=== PATIENT | male | born 1995 | race Caucasian/White ===

== ENCOUNTER 2017-06-23 10:30 | Emergency (ER) | payer OTHER ==
[~2017-06-23] VITALS: Ht 180.3 cm; Wt 84.1 kg
[2017-06-23 10:31] VITALS: BP 149/82
[2017-06-23] MEDS ORDERED: NAPR500T3 PO (10:41)
[2017-06-23] MEDS ORDERED: ADDE1TAB14 PO (10:41)
[2017-06-23] MEDS ORDERED: DOXY100C37 PO (12:29)
[2017-06-23] MEDS ORDERED: BENA25TA10 PO (12:29)
== END 2017-06-23 12:42 | disposition home or self-care (01) ==
LOC: M ED 10:30
DX: L30.9 Dermatitis, unspecified (principal); F90.9 Attention-deficit hyperactivity disorder, unspecified type; F17.210 Nicotine dependence, cigarettes, uncomplicated

== ENCOUNTER 2017-12-17 18:34 | Emergency (ER) | payer OTHER ==
[2017-12-17] MEDS: KETOROLAC 60 MG/2 ML VIAL (J1885) IM (20:22)
== END 2017-12-17 21:20 | disposition home or self-care (01) ==
LOC: M ED 18:34
DX: G43.909 Migraine, unspecified, not intractable, without status migrainosus (principal); F17.200 Nicotine dependence, unspecified, uncomplicated
CPT/HCPCS: J1885

== ENCOUNTER → 2018-03-26 | Outpatient (CLI) | payer OTHER | LOC: M RAD 16:21 | DX: N50.819 Testicular pain, unspecified (principal); R10.9 Unspecified abdominal pain | CPT/HCPCS: 76870 ==

== ENCOUNTER 2018-03-30 02:37 | Emergency (ER) | payer OTHER | END 2018-03-30 05:26 | disposition left against medical advice (07) | LOC: M ED 02:37 | DX: Z53.21 Procedure and treatment not carried out due to patient leaving prior to being seen by health care provider (principal) ==

== ENCOUNTER → 2018-04-29 | Outpatient (CLI) | payer OTHER ==
[2018-04-29 13:38] LABS: APPEARANCE, URINE CLEAR (CLEAR); BACTERIA, URINE AUTO NEGATIVE (NEGATIVE); BILIRUBIN, URINE AUTO NEGATIVE (NEGATIVE); BLOOD, URINE BLOOD NEGATIVE (NEGATIVE); COLOR, URINE YELLOW (YELLOW); GLUCOSE, URINE (UA) AUTO NEGATIVE (NEGATIVE); KETONE, URINE AUTO NEGATIVE (NEGATIVE); LEUKOCYTE ESTERASE, URINE AUTO NEGATIVE (NEGATIVE); NITRITE, URINE AUTO NEGATIVE (NEGATIVE); PROTEIN, URINE AUTO NEGATIVE (NEGATIVE); RBC, URINE AUTO 1 /HPF (0-3); SPECIFIC GRAVITY URINE AUTO 1.013 (1.002-1.035); SQUAMOUS EPITHELIAL CELL UR AU 0 /HPF (0-6); UROBILINOGEN, URINE AUTO 0.2 mg/dL (0.0-2.0); WBC, URINE AUTO 0 /HPF (0-3)
[2018-04-29 13:43] LABS: HEMATOCRIT 47.3 % (42.0-52.0); HEMOGLOBIN 16.1 g/dl (13.5-17.5); MEAN CORPUSCULAR HEMOGLOBIN 28.2 pg (27.0-33.0); MEAN CORPUSCULAR VOLUME 82.8 fl (80.0-96.0); PLATELET COUNT, AUTOMATED 277 10^3/uL (150-450); RED BLOOD COUNT 5.71 10^6/uL (4.30-6.10); RED CELL DISTRIBUTION WIDTH 12.3 % (11.5-14.5); WHITE BLOOD COUNT 7.8 10^3/uL (4.0-10.0)
[2018-04-29 13:52] LABS: INR 1.01; PROTHROMBIN TIME 13.4 SECONDS (12.1-14.4)
[2018-04-29 13:53] LABS: PARTIAL THROMBOPLASTIN TIME 29.5 SECONDS (25.4-37.6)
[2018-04-29 14:06] LABS: ANION GAP 6 MEQ/L (8-16); BLOOD UREA NITROGEN 15 MG/DL (7-18); CALCIUM LEVEL 9.6 MG/DL (8.5-10.1); CARBON DIOXIDE LEVEL 30 MEQ/L (21-32); CHLORIDE LEVEL 104 MEQ/L (98-107); CREATININE FOR GFR 1.05 MG/DL (0.70-1.30); GLOMERULAR FILTRATION RATE > 60.0 (>60); GLUCOSE, FASTING 80 MG/DL (70-100); POTASSIUM SERUM 4.4 MEQ/L (3.5-5.1); SODIUM LEVEL 140 MEQ/L (136-145)
== END ==
LOC: M LAB 12:49
DX: Z01.812 Encounter for preprocedural laboratory examination (principal); N50.89 Other specified disorders of the male genital organs
CPT/HCPCS: 36415

== ENCOUNTER 2018-05-05 13:04 | Day surgery (SDC) | payer OTHER ==
[~2018-05-05 13:04] MED LIST: LIDOCAINE 1% MDV 20ML VIAL SQ
[2018-05-05] MEDS ORDERED: ceFAZolin 2 GM/D5W 50 ML IV BAG (J0690 PER 500MG) As Ordered (13:40)
[2018-05-05] MEDS ORDERED: LR 1,000 ML IV (14:00)
[2018-05-05] MEDS ORDERED: dexameTHASONE 4 MG/ML 1ML VIAL (J1100) As Ordered (14:24)
[2018-05-05] MEDS ORDERED: MIDAZOLAM INJ 2 MG/2 ML VIAL (J2250) As Ordered (14:24)
[2018-05-05] MEDS ORDERED: LIDOCAINE 2% INJ 100 MG/5 ML SDV (FOR ANES.) As Ordered (14:24)
[2018-05-05] MEDS ORDERED: fentaNYL 100 MCG/2 ML INJECTION (J3010) As Ordered ×2 (14:24→15:36)
[2018-05-05] MEDS ORDERED: PROPOFOL 200 MG/20 ML VIAL As Ordered (14:24)
[2018-05-05] MEDS ORDERED: ONDANSETRON 4MG/2ML VIAL (J2405) As Ordered (14:24)
[2018-05-05] MEDS: LIDOCAINE 2% MDV 20 ML VIAL As Ordered (14:45)
[2018-05-05] MEDS: BUPIVACAINE HCL 0.25% 10 ML VIAL As Ordered (14:45)
[2018-05-05] MEDS ORDERED: BACITRACIN OINT 30GM As Ordered (14:52)
[2018-05-05] MEDS ORDERED: PERCOCET 5MG/325MG TAB As Ordered (15:33)
[2018-05-05] MEDS: PERCOCET 5MG/325MG TAB PO ×2 (15:34→16:32)
[2018-05-05] MEDS: fentaNYL 100 MCG/2 ML INJECTION (J3010) IV ×4 (15:38→15:56)
[2018-05-05] MEDS ORDERED: ONDANSETRON 4MG/2ML VIAL (J2405) IV (15:45)
[2018-05-05] MEDS ORDERED: KETOROLAC 30 MG/ML VIAL (J1885) As Ordered (15:48)
[2018-05-05] MEDS: KETOROLAC 30 MG/ML VIAL (J1885) IV (15:58)
== END 2018-05-05 17:05 | disposition home or self-care (01) ==
LOC: M SDC 13:04
DX: N50.3 Cyst of epididymis (principal); Q55.29 Other congenital malformations of testis and scrotum; Z72.0 Tobacco use
CPT/HCPCS: 54830

== ENCOUNTER 2018-06-28 14:52 | Emergency (ER) | payer OTHER | END 2018-06-28 16:34 | disposition left against medical advice (07) | LOC: M ED 14:52 | DX: Z53.29 Procedure and treatment not carried out because of patient's decision for other reasons (principal) ==

== ENCOUNTER 2018-09-20 09:15 | Emergency (ER) | payer OTHER ==
[~2018-09-20] VITALS: Ht 180.3 cm; Wt 90.9 kg
[~2018-09-20 09:15] MED LIST changes: +ADDE1TAB14 PO; +BACT800T5 PO; +BENA25TA10 PO; +DOXY100C37 PO; +KETO10TAB PO; -LIDOCAINE 1% MDV 20ML VIAL SQ; +METH-914 PO; +NAPR-885 PO; +TYLE650T35 PO
[2018-09-20] MEDS ORDERED: VIVI380I (09:22)
[2018-09-20] MEDS ORDERED: BUSP10TA (09:22)
[2018-09-20] MEDS ORDERED: PRAZ2CAP (09:22)
[2018-09-20] MEDS ORDERED: TRAZ-163 (09:22)
[2018-09-20] MEDS ORDERED: SERT-155 (09:22)
--- NOTE | 2018-09-20 10:25 | REP ---
CT Head without contrast HISTORY: Head injury COMPARISON: 12/17/2017 There is no intraparenchymal hemorrhage, acute infarct, mass or midline shift. The ventricular system is normal in appearance. There is no extra cerebral collection. There is no fracture. The visualized sinuses are clear. IMPRESSION: There is no intracranial lesion. Electronically Signed by Moe Brannon MD 09/20/2018 10:16 A
[2018-09-20] MEDS ORDERED: ONDANSETRON 4MG/2ML VIAL (J2405) IV ONE (10:30)
[2018-09-20 10:36] LABS: BASO # 0.1 10^3/uL (0.0-0.2); BASO % 0.9 % (0.0-1.0); EOS # 0.2 10^3/uL (0.0-0.50); EOS % 2.3 % (0.0-3.0); HEMOGLOBIN 15.8 g/dl (13.5-17.5); LYMPH # 2.3 10^3/uL (1.5-6.5); MEAN CORPUSCULAR HEMOGLOBIN 28.5 pg (27.0-33.0); MEAN CORPUSCULAR HGB CONC 34.3 g/dl (32.0-36.5); MEAN CORPUSCULAR VOLUME 82.9 fl (80.0-96.0); MONO # 0.5 10^3/uL (0.0-0.8); MONO % 6.9 % (0.0-5.0); NEUTROPHILS # 4.6 10^3/uL (1.8-7.7); NEUTROPHILS % 59.3 % (36.0-66.0); PLATELET COUNT, AUTOMATED 258 10^3/uL (150-450); RED BLOOD COUNT 5.55 10^6/uL (4.30-6.10); WHITE BLOOD COUNT 7.8 10^3/uL (4.0-10.0)
[2018-09-20 10:38] LABS: BLOOD UREA NITROGEN 21 MG/DL (7-18); CALCIUM LEVEL 8.9 MG/DL (8.5-10.1); CARBON DIOXIDE LEVEL 28 MEQ/L (21-32); CHLORIDE LEVEL 104 MEQ/L (98-107); CREATININE FOR GFR 1.04 MG/DL (0.70-1.30); GLOMERULAR FILTRATION RATE > 60.0 (>60); GLUCOSE, FASTING 123 MG/DL (70-100); POTASSIUM SERUM 3.8 MEQ/L (3.5-5.1); SODIUM LEVEL 137 MEQ/L (136-145)
[2018-09-20] MEDS ORDERED: NS 1,000 ML IV ONE (11:00)
[2018-09-20] MEDS ORDERED: ACETAMINOPHEN 325 MG TAB PO ONE (12:00)
[2018-09-20] MEDS ORDERED: METOCLOPRAMIDE INJ 10MG/2ML VIAL (J2765) IV ONE (13:30)
[2018-09-20] MEDS ORDERED: MORPHINE 2 MG/ML 1ML SYRINGE (J2270) IV ONE (13:30)
--- NOTE | 2018-09-20 13:49 | ECGEPIP ---
Stationary ECG Study [facility] - ED Test Date: 2018-09-20 Pat Name: BARBARA HUMMEL Department: Room: - Gender: M Sap Mobility Architect: susan : 1995 Requested By: Juancarlos Cameron Order Number: [id number] Reading MD: Elaine Washburn Measurements Intervals [place] Rate: 57 P: 48 NC: 165 QRS: 52 QRSD: 113 T: 28 QT: 380 QTc: 373 Interpretive Statements SINUS BRADYCARDIA MODERATE INTRAVENTRICULAR CONDUCTION DELAY EARLY REPOLARIZATION, CLINICAL CORRELATION DECREASED RATE 06/28/18 Electronically Signed On 09-20-2018 13:48:51 EST by Elaine Washburn
[2018-09-20] MEDS ORDERED: D5W/0.45% SODIUM CHLORIDE 1,000 ML IV ONE (15:00)
[2018-09-20] MEDS ORDERED: REGL5TAB2 PO (16:14)
--- NOTE | 2018-09-20 16:22 | REP ---
MRA BRAIN WITHOUT CONTRAST: HISTORY: Headache. 3D [id number] MR angiography was performed at the level of the [place]. There is no aneurysm, arteriovenous malformation or atherosclerotic lesion. Major intracranial vessels are patent. The right vertebral artery is dominant. The left vertebral artery terminates in the left posterior inferior cerebellar artery. Impression: Normal MRA brain. Electronically Signed by Moe Brannon MD 09/20/2018 04:25 P
--- NOTE | 2018-09-20 16:23 | REP ---
MR BRAIN WITHOUT CONTRAST: HISTORY: Headache. COMPARISON: CT 09/20/2018. There are no areas of abnormal signal intensity in the brain. There is no intraparenchymal hemorrhage, infarct, mass, or midline shift. The ventricular system is normal in appearance. There is no extracerebral collection. The visualized sinuses are clear. IMPRESSION:There is no intracranial lesion. Electronically Signed by Moe Brannon MD 09/20/2018 04:25 P
[2018-09-20 16:40] VITALS: BP 144/63
== END 2018-09-20 16:42 | disposition home or self-care (01) ==
LOC: M ED 09:15
DX: R51 Headache (principal); R42 Dizziness and giddiness; F17.200 Nicotine dependence, unspecified, uncomplicated
CPT/HCPCS: 36415; 70450; 70544; 70551; 80048; 85025; 93005; 96361; 96374; 96375; 99284; J2270; J2405; J2765

== ENCOUNTER → 2018-10-01 | Outpatient (REF) | payer OTHER ==
[~2018-10-01] MED LIST changes: +BUSP10TA; +PRAZ2CAP; +REGL5TAB2 PO; +SERT-155; +TRAZ-163; +VIVI380I
[2018-10-01 14:17] LABS: APPEARANCE, URINE CLEAR (CLEAR); BACTERIA, URINE AUTO NEGATIVE (NEGATIVE); BILIRUBIN, URINE AUTO NEGATIVE (NEGATIVE); BLOOD, URINE BLOOD NEGATIVE (NEGATIVE); COLOR, URINE YELLOW (YELLOW); GLUCOSE, URINE (UA) AUTO NEGATIVE (NEGATIVE); KETONE, URINE AUTO NEGATIVE (NEGATIVE); LEUKOCYTE ESTERASE, URINE AUTO NEGATIVE (NEGATIVE); NITRITE, URINE AUTO NEGATIVE (NEGATIVE); PROTEIN, URINE AUTO NEGATIVE (NEGATIVE); RBC, URINE AUTO 0 /HPF (0-3); SPECIFIC GRAVITY URINE AUTO 1.021 (1.002-1.035); SQUAMOUS EPITHELIAL CELL UR AU 0 /HPF (0-6); UROBILINOGEN, URINE AUTO 0.2 mg/dL (0.0-2.0); WBC, URINE AUTO 1 /HPF (0-3)
== END ==
LOC: M SMT 13:11
PROVIDERS: ATTEND Nurse Practitioner Women's Health
DX: N50.819 Testicular pain, unspecified (principal)
CPT/HCPCS: 81001; 87086; G0463

== ENCOUNTER → 2018-10-04 | Outpatient (CLI) | payer OTHER ==
--- NOTE | 2018-10-04 22:09 | REP ---
Clinical: Left-sided testicular pain and palpable mass. Technique: Real time armendariz scale and color Doppler evaluation using linear high frequency transducer. Comparison: 03/26/2018. Findings: The bilateral testicles are normal in contour, size, echogenicity and vascularity without focal mass, infectious/inflammatory process, or torsion. Mild left scrotal wall thickening along with few left epididymal head cysts measuring up to 7 mm maximal diameter represent relatively new findings. The patient's pain and palpable mass corresponds to to the left epididymal head cysts. Right testicle measures 4.6 x 2.0 x 2.6 cm. Left testicle measures 4.3 x 2.2 x 3.2 cm. Impression: 1. Mild left scrotal wall thickening is nonspecific and may be related to prior surgery. 2. Pain and palpable mass corresponds to a grouping of epididymal head cysts which measure up to 7 mm maximal diameter. 3. The bilateral testicles are normal in appearance and vascularity. Electronically Signed by Narendra White MD 10/04/2018 10:00 P
== END ==
LOC: M SMT 11:05
PROVIDERS: ATTEND Nurse Practitioner Women's Health
DX: N50.9 Disorder of male genital organs, unspecified (principal)

== ENCOUNTER 2018-11-05 15:16 | Emergency (ER) | payer OTHER ==
[~2018-11-05] VITALS: Ht 180.3 cm; Wt 97.7 kg
[2018-11-05 15:18] VITALS: BP 148/84
== END 2018-11-05 16:26 | disposition home or self-care (01) ==
LOC: M ED 15:16
DX: F32.9 Major depressive disorder, single episode, unspecified (principal); Z72.89 Other problems related to lifestyle; Z79.899 Other long term (current) drug therapy

== ENCOUNTER 2018-12-03 11:39 | Day surgery (SDC) | payer OTHER ==
[~2018-12-03] VITALS: Ht 180.3 cm; Wt 94.8 kg
[2018-12-03] MEDS ORDERED: ABIL1TAB13 PO (12:28)
[2018-12-03] MEDS ORDERED: PROPOFOL 200 MG/20 ML VIAL As Ordered ONE ×2 (12:55→14:50)
[2018-12-03] MEDS ORDERED: dexameTHASONE 4 MG/ML 1ML VIAL (J1100) As Ordered ONE (12:55)
[2018-12-03] MEDS ORDERED: LIDOCAINE 2% INJ 100 MG/5 ML SDV (FOR ANES.) As Ordered ONE (12:55)
[2018-12-03] MEDS ORDERED: MIDAZOLAM INJ 2 MG/2 ML VIAL (J2250) As Ordered ONE (12:56)
[2018-12-03] MEDS ORDERED: fentaNYL 250 MCG/5 ML INJECTION (J3010) As Ordered ONE (12:56)
[2018-12-03] MEDS ORDERED: ceFAZolin 2 GM/D5W 50 ML IV BAG (J0690 PER 500MG) As Ordered ONE (13:26)
[2018-12-03] MEDS ORDERED: LIDOCAINE 1% MDV 20ML VIAL As Ordered ONE (14:05)
[2018-12-03] MEDS ORDERED: BUPIVACAINE HCL 0.25% 10 ML VIAL As Ordered ONE (14:05)
[2018-12-03] MEDS ORDERED: BACITRACIN OINT 30GM As Ordered ONE (14:20)
[2018-12-03] MEDS ORDERED: ACETAMINOPHEN 1000MG 100ML IV BTL (OFIRMEV) (J0131 PER 10MG) As Ordered ONE (15:15)
[2018-12-03] MEDS ORDERED: METOCLOPRAMIDE INJ 10MG/2ML VIAL (J2765) IV PRN (16:15)
[2018-12-03] MEDS ORDERED: ONDANSETRON 4MG/2ML VIAL (J2405) IV PRN (16:15)
[2018-12-03] MEDS ORDERED: LR 1,000 ML IV SCH (16:15)
[2018-12-03] MEDS ORDERED: PERCOCET 5MG/325MG TAB PO PRN ×2 (16:30)
[2018-12-03] MEDS: PERCOCET 5MG/325MG TAB PO PRN ×2 (16:32→17:08)
[2018-12-03] MEDS: fentaNYL 100 MCG/2 ML INJECTION (J3010) IV PRN ×4 (16:33→17:00)
[2018-12-03 17:30] VITALS: BP 130/80
--- NOTE | 2018-12-03 18:50 | ROOPDOC ---
[facility] Report Of Operation Report of Operation DATE OF PROCEDURE: 12/03/18 PREPROCEDURE DIAGNOSES: Chronic Left Testicular Pain, Sterilization. POSTPROCEDURE DIAGNOSES: Chronic Left Testicular Pain, Sterilization. PROCEDURE: Left Simple Orchiectomy, Right Vasectomy. SURGEON: Jason Wong MD PULP GRINDER: None ANESTHESIA: General. OPERATIVE INDICATIONS: This is a 23 year old male with chronic debilitating left testicular pain with no obvious cause found on extensive testing. Due to the severity of the pain he was offered a left simple orchiectomy as a treatment option and after careful consideration he elected to have it done. In addition he and his have 2 children and do not desire to have any more. He therefore requested a right vasectomy as well. DESCRIPTION OF PROCEDURE: The patient was brought to the operating room and general anesthesia was induced. Prophylactic antibiotics were infused. He was then placed in the supine position in preparation for the above listed procedure. At this point right sided vasectomy was performed. The right vas deferens was approached. After it was localized under the skin, it was infiltrated with anesthetic and after 2 minutes a small incision was made in the upper scrotum. The vas was grasped with the vas clamp and was isolated. The incision was made over the vas capsule to localize the vas. Then the vas was grasped with a vas clamp, cut on either side, and ligated with metal clips on both sides. The ends of the vas were cauterized with electo-cautery. After control all small bleeding with the electro-cautery the skin was sealed with Dermabond. Next an approximately a 3-4 cm transverse incision was made over the left hemiscrotum. We then dissected down through the scrotal wall layers. The testicle was then delivered outside of the tunica vaginalis. The spermatic cord was then carefully dissected and then high on the cord a Vanessa clamp was placed. Just distal to the Vanessa clamp the cord was into two separate packets and then a clamp was placed on each packet. The spermatic cord was then transected distal to those clamps. At this point 0 Vicryl free ties were placed each packet. Next an 0-Vicryl suture ligature was placed around the more proximal Vanessa clamp. Once this was done hemostasis was checked and any areas of bleeding were controlled with electrocautery. Once I was satisfied with hemostasis the wound was irrigated. At this point we began closing with a running 2-0 Vicryl suture. The skin was closed with interrupted 2-0 chromic sutures. Bacitracin ointment was applied to all of the incisions and dressings were applied and this marked the conclusion of the procedure. The patient was then awakened from anesthesia and transported to the recovery room in stable condition. ESTIMATED BLOOD LOSS: Approximately 10 mL. COMPLICATIONS: None. SPECIMENS: Left Testicle, Segment of Right Vas Deferens PLAN: The patient will follow up in clinic in 1-2 weeks. We will have him do a post-vasectomy semen analysis in 8 weeks. JASON WONG MD Dec 03, 2018 18:50
[2018-12-04] MEDS ORDERED: IBUP1TAB7 PO (23:12)
[2018-12-04] MEDS ORDERED: PERC5TAB12 PO ×2 (23:12→23:16)
== END 2018-12-03 17:45 | disposition home or self-care (01) ==
LOC: M SDC 11:39
PROVIDERS: ATTEND Urology
DX: N50.812 Left testicular pain (principal); Z30.2 Encounter for sterilization; Z87.891 Personal history of nicotine dependence; Z79.899 Other long term (current) drug therapy
CPT/HCPCS: 54520; 55250; 88302; 88305; J0131; J1100; J2250; J2405; J2765; J3010

== ENCOUNTER 2018-12-04 19:39 | Emergency (ER) | payer OTHER ==
[~2018-12-04] VITALS: Ht 180.3 cm; Wt 95.5 kg
[~2018-12-04 19:39] MED LIST changes: +ABIL1TAB13 PO; +METH-1022 PO; -METH-914 PO
[2018-12-04] MEDS ORDERED: ONDANSETRON 4MG/2ML VIAL (J2405) IV ONE (20:15)
[2018-12-04] MEDS ORDERED: KETOROLAC 30 MG/ML VIAL (J1885) IV ONE (20:15)
[2018-12-04 20:20] LABS: BASO # 0.1 10^3/uL (0.0-0.2); BASO % 0.3 % (0.0-1.0); EOS # 0.1 10^3/uL (0.0-0.50); EOS % 0.6 % (0.0-3.0); HEMATOCRIT 39.7 % (42.0-52.0); HEMOGLOBIN 13.8 g/dl (13.5-17.5); LYMPH # 3.9 10^3/uL (1.5-6.5); LYMPH % 25.2 % (24.0-44.0); MEAN CORPUSCULAR HEMOGLOBIN 28.7 pg (27.0-33.0); MEAN CORPUSCULAR HGB CONC 34.8 g/dl (32.0-36.5); MEAN CORPUSCULAR VOLUME 82.5 fl (80.0-96.0); MONO # 1.1 10^3/uL (0.0-0.8); MONO % 7.3 % (0.0-5.0); NEUTROPHILS # 10.3 10^3/uL (1.8-7.7); NEUTROPHILS % 66.3 % (36.0-66.0); PLATELET COUNT, AUTOMATED 275 10^3/uL (150-450); RED BLOOD COUNT 4.81 10^6/uL (4.30-6.10); WHITE BLOOD COUNT 15.5 10^3/uL (4.0-10.0)
[2018-12-04 20:41] LABS: BLOOD UREA NITROGEN 18 MG/DL (7-18); CALCIUM LEVEL 7.9 MG/DL (8.5-10.1); CARBON DIOXIDE LEVEL 25 MEQ/L (21-32); CHLORIDE LEVEL 107 MEQ/L (98-107); GLOMERULAR FILTRATION RATE > 60.0 (>60); GLUCOSE, FASTING 140 MG/DL (70-100); POTASSIUM SERUM 3.8 MEQ/L (3.5-5.1); SODIUM LEVEL 141 MEQ/L (136-145)
--- NOTE | 2018-12-04 21:06 | REPVR ---
EXAM: US Scrotum EXAM DATE/TIME: 12/04/2018 8:36 PM CLINICAL HISTORY: 23 years old, male; Pain; Scrotum pain; Prior surgery; Surgery date: Post-operative (0-2 days); Surgery type: Lt orchiectomy and RT vasectomy; Additional info: Postoperative hematoma, R/O torsion, ischemia TECHNIQUE: Imaging protocol: Real-time ultrasound of the scrotum and contents with color Doppler and image documentation. COMPARISON: Scrotal, US 03/26/2018 4:50 PM FINDINGS: Right Testicle: The right testicle measures 4.9 cm in length x 2.7 CM in thickness. There is vascular flow of the right testicle with no evidence of torsion. Left Testicle: The patient has a history of removal of the left testicle recently. Epididymides: The head of the epididymis on the right is 1 CM. Scrotum: According to the DrEva there is a clinical examination appearance of the left scrotum consistent with a large hematoma. On ultrasound within the left scrotum there is a solid structure that is irregular in echogenicity 6.5 x 5.6 x 5.4 CM and consistent with a very large hematoma. It would be important to have followup studies to ensure that this completely resolves. IMPRESSION: Massive hematoma filling the left scrotum recommend followup studies to ensure that this resolves.Findings were discussed with MILDRED GARCIA at 12/04/2018 9:03 PM EDT. Electronically signed by: Servando Zamora On 12/04/2018 21:05:41 PM
[2018-12-04] MEDS ORDERED: MORPHINE 4 MG/ML 1ML VIAL/SYRINGE (J2270) IV PRN (21:15)
[2018-12-04] MEDS ORDERED: HYDROMORPHONE HCL 0.5 MG/ 0.5 ML SYRINGE (J1170 PER 1) IV PRN (21:45)
[2018-12-04] MEDS ORDERED: PERC5TAB12 PO ×2 (23:12→23:16)
[2018-12-04] MEDS ORDERED: IBUP1TAB7 PO (23:12)
[2018-12-04] MEDS ORDERED: PERCOCET 5MG/325MG TAB PO ONE (23:15)
[2018-12-04] MEDS ORDERED: OXYCODONE/APAP 5MG/325MG(BULK FOR ED) 1 TABLET PO ONE (23:30)
[2018-12-04 23:34] VITALS: BP 131/62
--- NOTE | 2018-12-06 11:25 | ED PDOC ---
Post-Departure Follow-Up dr rueda faxed formal report of scrotal us for fu Juancarlos García MD Dec 06, 2018 11:25
== END 2018-12-04 23:37 | disposition home or self-care (01) ==
LOC: M ED 19:39
DX: N99.840 Postprocedural hematoma of a genitourinary system organ or structure following a genitourinary system procedure (principal); D64.9 Anemia, unspecified; E83.51 Hypocalcemia; F90.9 Attention-deficit hyperactivity disorder, unspecified type; F43.20 Adjustment disorder, unspecified; Z79.899 Other long term (current) drug therapy
CPT/HCPCS: 76870; 80048; 81001; 85025; 93976; 96374; 96375; 99284; J1885; J2405

== ENCOUNTER → 2018-12-09 | Outpatient (CLI) | payer OTHER ==
[~2018-12-09] MED LIST changes: +APAP325T4 PO; +IBUP1TAB7 PO; -METH-1022 PO; +METH-914 PO; +PERC5TAB12 PO
[2018-12-09 17:23] LABS: HEMATOCRIT 46.8 % (42.0-52.0)
[2018-12-09 19:06] LABS: AMORPHOUS SEDIMENT SMALL (NEGATIVE); APPEARANCE, URINE CLEAR (CLEAR); BACTERIA, URINE AUTO NEGATIVE (NEGATIVE); BILIRUBIN, URINE AUTO NEGATIVE (NEGATIVE); BLOOD, URINE BLOOD 1+ (NEGATIVE); COLOR, URINE YELLOW (YELLOW); GLUCOSE, URINE (UA) AUTO NEGATIVE (NEGATIVE); KETONE, URINE AUTO NEGATIVE (NEGATIVE); LEUKOCYTE ESTERASE, URINE AUTO NEGATIVE (NEGATIVE); MUCUS, URINE SMALL (NEGATIVE); NITRITE, URINE AUTO NEGATIVE (NEGATIVE); PROTEIN, URINE AUTO NEGATIVE (NEGATIVE); RBC, URINE AUTO 54 /HPF (0-3); SQUAMOUS EPITHELIAL CELL UR AU 0 /HPF (0-6); UROBILINOGEN, URINE AUTO 0.2 mg/dL (0.0-2.0); WBC, URINE AUTO 1 /HPF (0-3)
== END ==
LOC: M SMT 14:58
PROVIDERS: ATTEND Nurse Practitioner Family
DX: R30.0 Dysuria (principal)

== ENCOUNTER → 2018-12-10 | Outpatient (CLI) | payer OTHER ==
[~2018-12-10] MED LIST changes: +METH-1022 PO; -METH-914 PO
--- NOTE | 2018-12-10 09:32 | REP ---
SCROTAL ULTRASOUND: Real-time sonographic evaluation of the scrotum and contents performed. Comparison made with prior study of 12/04/2018. Patient has had a recent left orchiectomy. The right testicle is normal in size and echotexture, measuring 4.8 x 2.4 x 2.6 cm. There is no testicular mass or torsion with resistive index 0.48. Once again, there is a large left scrotal hematoma. Approximate measurements are 8.0 x 4.4 x 5.7 cm. Given differences in measuring technique. This does not appear to have significantly changed in size. Tiny echogenic foci within this hematoma could represent tiny foci of postsurgical air. IMPRESSION: Stable left scrotal hematoma. Electronically Signed by Nikhil Nicholas MD 12/10/2018 03:31 P
== END ==
LOC: M RAD 07:48
PROVIDERS: ATTEND Nurse Practitioner Family
DX: S30.22XD Contusion of scrotum and testes, subsequent encounter (principal); X58.XXXD Exposure to other specified factors, subsequent encounter; Y92.89 Other specified places as the place of occurrence of the external cause

== ENCOUNTER 2018-12-12 12:47 | Emergency (ER) | payer OTHER ==
[~2018-12-12] VITALS: Ht 180.3 cm; Wt 95.5 kg
[~2018-12-12 12:47] MED LIST changes: -APAP325T4 PO
[2018-12-12] MEDS ORDERED: APAP325T4 PO ×2 (12:59)
[2018-12-12] MEDS ORDERED: ONDANSETRON 4MG/2ML VIAL (J2405) IV ONE (13:15)
[2018-12-12] MEDS ORDERED: ACETAMINOPHEN 325 MG TAB PO ONE (13:15)
[2018-12-12] MEDS ORDERED: NS 1,000 ML IV ONE (13:15)
[2018-12-12 13:28] LABS: BASO # 0.1 10^3/uL (0.0-0.2); BASO % 0.8 % (0.0-1.0); EOS # 0.2 10^3/uL (0.0-0.50); EOS % 1.9 % (0.0-3.0); HEMATOCRIT 45.6 % (42.0-52.0); HEMOGLOBIN 15.7 g/dl (13.5-17.5); LYMPH # 2.8 10^3/uL (1.5-6.5); LYMPH % 23.5 % (24.0-44.0); MEAN CORPUSCULAR HEMOGLOBIN 28.1 pg (27.0-33.0); MEAN CORPUSCULAR HGB CONC 34.4 g/dl (32.0-36.5); MEAN CORPUSCULAR VOLUME 81.6 fl (80.0-96.0); NEUTROPHILS # 7.8 10^3/uL (1.8-7.7); PLATELET COUNT, AUTOMATED 352 10^3/uL (150-450); RED BLOOD COUNT 5.59 10^6/uL (4.30-6.10); WHITE BLOOD COUNT 11.9 10^3/uL (4.0-10.0)
[2018-12-12 13:38] LABS: INR 0.97
[2018-12-12 13:39] LABS: PARTIAL THROMBOPLASTIN TIME 31.7 SECONDS (25.4-37.6)
[2018-12-12 13:48] LABS: BLOOD UREA NITROGEN 17 MG/DL (7-18); CALCIUM LEVEL 9.4 MG/DL (8.5-10.1); CARBON DIOXIDE LEVEL 29 MEQ/L (21-32); CHLORIDE LEVEL 103 MEQ/L (98-107); CREATININE FOR GFR 1.06 MG/DL (0.70-1.30); GLOMERULAR FILTRATION RATE > 60.0 (>60); GLUCOSE, FASTING 101 MG/DL (70-100); POTASSIUM SERUM 4.1 MEQ/L (3.5-5.1); SODIUM LEVEL 139 MEQ/L (136-145)
--- NOTE | 2018-12-12 15:18 | REP ---
Clinical: Status post left orchiectomy with postsurgical hematoma read Technique: Real time armendariz scale and color Doppler evaluation using curved array transducer. Findings: Right testicle and epididymis are normal in contour, size, echogenicity and vascularity without abnormality and without hydrocele or varicocele. Right testicle measures 5.0 x 2.4 x 3.3 cm. Complex hematoma/collection in the left ju scrotum now measures 5.7 x 2.9 x 3.9 cm and includes central echogenic components and gas extending to the incision site. Impression: Suspected complex hematoma related to left orchiectomy slightly decreased from prior examination but now containing more central echogenic material and small amounts of gas. Forming abscess cannot be excluded. Electronically Signed by Narendra White MD 12/12/2018 03:09 P
[2018-12-12] MEDS ORDERED: BACT800T5 PO (15:31)
[2018-12-12 15:41] VITALS: BP 135/78
--- NOTE | 2018-12-14 11:25 | ED PDOC ---
Post-Departure Follow-Up dr house faxed formal report of scrotal us for fu Juancarlos García MD Dec 14, 2018 11:25
== END 2018-12-12 15:43 | disposition home or self-care (01) ==
LOC: M ED 12:47
DX: N99.89 Other postprocedural complications and disorders of genitourinary system (principal); M79.81 Nontraumatic hematoma of soft tissue; N49.2 Inflammatory disorders of scrotum; F90.9 Attention-deficit hyperactivity disorder, unspecified type; F43.10 Post-traumatic stress disorder, unspecified; Z79.899 Other long term (current) drug therapy
CPT/HCPCS: 76870; 80048; 85025; 85610; 85730; 86850; 86900; 86901; 93976; 96374; 99284; J2405

== ENCOUNTER 2018-12-24 15:31 | Day surgery (SDC) | payer OTHER ==
[~2018-12-24] VITALS: Ht 180.3 cm; Wt 93.5 kg
[~2018-12-24 15:31] MED LIST changes: -CIPR500T3 PO
[2018-12-24] MEDS ORDERED: CIPR500T3 PO (15:59)
[2018-12-24] MEDS ORDERED: BUPIVACAINE HCL 0.25% 30 ML VIAL As Ordered ONE (16:13)
[2018-12-24] MEDS ORDERED: BACITRACIN OINT 30GM As Ordered ONE (16:14)
[2018-12-24] MEDS ORDERED: dexameTHASONE 4 MG/ML 1ML VIAL (J1100) As Ordered ONE (16:37)
[2018-12-24] MEDS ORDERED: PROPOFOL 200 MG/20 ML VIAL As Ordered ONE (16:37)
[2018-12-24] MEDS ORDERED: LIDOCAINE 2% INJ 100 MG/5 ML SDV (FOR ANES.) As Ordered ONE (16:37)
[2018-12-24] MEDS ORDERED: ONDANSETRON 4MG/2ML VIAL (J2405) As Ordered ONE ×2 (16:37→18:25)
[2018-12-24] MEDS ORDERED: fentaNYL 100 MCG/2 ML INJECTION (J3010) As Ordered ONE ×2 (16:38→18:25)
[2018-12-24] MEDS ORDERED: MIDAZOLAM INJ 2 MG/2 ML VIAL (J2250) As Ordered ONE (16:38)
[2018-12-24] MEDS ORDERED: LR 1,000 ML IV ONE (17:15)
[2018-12-24] MEDS ORDERED: ceFAZolin 2 GM/D5W 50 ML IV BAG (J0690 PER 500MG) As Ordered ONE (17:19)
[2018-12-24] MEDS ORDERED: ONDANSETRON 4MG/2ML VIAL (J2405) IV PRN (18:45)
[2018-12-24] MEDS ORDERED: LR 1,000 ML IV SCH (18:45)
[2018-12-24] MEDS ORDERED: PERCOCET 5MG/325MG TAB PO PRN (18:45)
[2018-12-24] MEDS ORDERED: fentaNYL 100 MCG/2 ML INJECTION (J3010) IV PRN (18:45)
[2018-12-24] MEDS ORDERED: NORCO, ANEXSIA 5/325MG TABLET (HYDROcodone/ACETAMINOPHEN) PO PRN (18:45)
[2018-12-24 20:14] VITALS: BP 143/77
--- NOTE | 2018-12-24 21:06 | RO ---
DATE OF PROCEDURE: 12/24/2018 PREPROCEDURE DIAGNOSIS: Left scrotal abscess. POSTPROCEDURE DIAGNOSIS: Left scrotal abscess. PROCEDURE: Incision and drainage of left scrotal abscess. SURGEON: Karthikeyan Harper MD ORNAMENTAL IRONWORKER: None. ANESTHESIA: General. OPERATIVE INDICATIONS: This is a 23-year-old male who underwent a simple left orchiectomy approximately 1 month ago. It was complicated by a scrotal hematoma which subsequently opened up and drained through his incision. Today he was found to have a small left scrotal abscess. It was recommended he be brought to the operating room today for the above listed procedure. DESCRIPTION OF PROCEDURE: The patient was brought to the operating room and general anesthesia was induced. Prophylactic antibiotics were infused. He was then placed in the supine position and prepped and draped in the usual sterile fashion. At this point, his previous left scrotal incision was opened up bluntly and extended approximately 1-2 cm. There was immediate drainage of purulent and foul-smelling material. Cultures were obtained of this fluid to be sent for anaerobic and aerobic cultures. All this fluid was then expressed out. I also used my finger to open up any potential cavities inside the left hemiscrotum. There was a hard area superiorly, which felt like it was the distal end of his spermatic cord, which had been tied off. I did not try to manipulate that area too much for fear of causing any bleeding. At this point I thoroughly washed out the left hemiscrotum with a bulb syringe several times and suctioned out all the fluid. Hemostasis was obtained with electrocautery. Once satisfied with hemostasis, a Cofield drain was placed into the left scrotal cavity and sutured in place with a #2-0 silk suture. Part of this incision was also closed with interrupted #2-0 Vicryl sutures. Once this was done, this marked the conclusion of the procedure. Dressings were applied, and the patient was awakened from anesthesia and carried to recovery room in stable condition. Estimated blood loss: 5 mL. Complications: None. Specimens: Cultures from left scrotal abscess. Plan: I will leave his Carmine drain in place until next week. We will take it out in the office. I will also put him on Bactrim for at least 10-14 days to treat his infection. MAKEDA
== END 2018-12-24 20:14 | disposition home or self-care (01) ==
LOC: M SDC 15:31
PROVIDERS: ATTEND Urology
DX: N45.4 Abscess of epididymis or testis (principal)
CPT/HCPCS: 55100; 87070; 87075; 87076; 87205; J1100; J2250; J2405; J3010

== ENCOUNTER → 2018-12-24 | Outpatient (CLI) | payer OTHER ==
[~2018-12-24] MED LIST changes: +APAP325T4 PO; +CIPR500T3 PO
--- NOTE | 2018-12-24 10:39 | REP ---
SCROTAL ULTRASOUND: Real-time sonographic evaluation of the scrotum and contents performed and compared to prior study of 12/12/2018. Patient has had a prior left orchiectomy with hematoma. Right testicle appears normal in size and echotexture, measuring 4.6 x 2.6 x 2.6 cm, resistive index 0.50 duplex Doppler evaluation. Tiny benign calcification 2 mm in diameter is seen on the tunica albuginea. In the left hemiscrotum there is a complex fluid collection consistent with abscess. A small amount of air is seen in this complex fluid collection. This measures about 2 cm in diameter. A central solid appearing structure in the left hemiscrotum demonstrates internal arterial waveforms possibly representing a stump of spermatic cord. IMPRESSION: Complex fluid collection left hemiscrotum with air most likely representing an abscess with diameter approximately 2 cm. Electronically Signed by Nikhil Nicholas MD 12/24/2018 04:59 P
== END ==
LOC: M RAD 09:21
PROVIDERS: ATTEND Nurse Practitioner Family
DX: S30.22XA Contusion of scrotum and testes, initial encounter (principal); W18.30XA Fall on same level, unspecified, initial encounter; Y92.009 Unspecified place in unspecified non-institutional (private) residence as the place of occurrence of the external cause

== ENCOUNTER → 2019-03-02 | Outpatient (CLI) | payer OTHER ==
[~2019-03-02] MED LIST changes: +CIPR500T3 PO
== END ==
LOC: M LAB 08:38
PROVIDERS: ATTEND Urology
DX: E29.1 Testicular hypofunction (principal); Z12.5 Encounter for screening for malignant neoplasm of prostate
CPT/HCPCS: 36415; 84403; G0103

== ENCOUNTER → 2019-03-08 | Outpatient (CLI) | payer OTHER | LOC: M LAB 08:53 | PROVIDERS: ATTEND Urology | DX: E29.1 Testicular hypofunction (principal) ==

== ENCOUNTER → 2019-04-18 | Outpatient (CLI) | payer OTHER | LOC: M LAB 08:12 | PROVIDERS: ATTEND Urology | DX: E29.1 Testicular hypofunction (principal) ==

== ENCOUNTER → 2019-06-08 | Outpatient (REF) | payer OTHER ==
[2019-06-08 15:43] LABS: APPEARANCE, URINE CLEAR (CLEAR); BACTERIA, URINE AUTO NEGATIVE (NEGATIVE); BILIRUBIN, URINE AUTO NEGATIVE (NEGATIVE); BLOOD, URINE BLOOD NEGATIVE (NEGATIVE); COLOR, URINE YELLOW (YELLOW); GLUCOSE, URINE (UA) AUTO NEGATIVE (NEGATIVE); KETONE, URINE AUTO NEGATIVE (NEGATIVE); LEUKOCYTE ESTERASE, URINE AUTO NEGATIVE (NEGATIVE); NITRITE, URINE AUTO NEGATIVE (NEGATIVE); PROTEIN, URINE AUTO NEGATIVE (NEGATIVE); RBC, URINE AUTO 0 /HPF (0-3); SPECIFIC GRAVITY URINE AUTO 1.016 (1.002-1.035); SQUAMOUS EPITHELIAL CELL UR AU 0 /HPF (0-6); UROBILINOGEN, URINE AUTO 0.2 mg/dL (0.0-2.0); WBC, URINE AUTO 0 /HPF (0-3)
[2019-06-08 17:18] LABS: CHLAMYDIA DNA AMPLIFICATION NEGATIVE (NEGATIVE); GC DNA AMPLIFICATION NEGATIVE (NEGATIVE)
== END ==
LOC: M SMT 13:40
PROVIDERS: ATTEND Nurse Practitioner Family
DX: N50.819 Testicular pain, unspecified (principal)
CPT/HCPCS: 81001; 87086; 87491; 87591; G0463

== ENCOUNTER → 2019-06-10 | Outpatient (CLI) | payer OTHER ==
--- NOTE | 2019-06-10 15:21 | REP ---
Oral ultrasound for right scrotal pain: Comparison is 12/24/2018. The the patient has had an interim left orchiectomy. The right testicle measures 4.4 x 2.0 x 2.8 cm and is normal size. There is no testicular mass or cyst. There is vascular flow in the right testis with the Doppler resistive index of the parenchymal arteries measuring 0.60. There is a scrotal calcification, scrotal ria, of no clinical significance measuring 2 mm. The epididymal head measures 12 mm and is otherwise unremarkable. There is a palpable nodule along the inferior margin of the right scrotal wall. Ultrasonography of this areas identifies several small linear echogenic foci within the soft tissues measuring up to 3 mm in length. I suspect there are small fluid collections in the soft tissues intermixed with these linear densities. These could represent foreign bodies with granuloma formation . They were not definitely present on the prior study. Left uj scrotum: There has been interim left orchiectomy. The patient complains of pain at the incision site. Ultrasonography of the incision site identifies no nodule or fluid collection. Impression: At the inferior pole of the right ju scrotum where the patient complains of a painful palpable lump, there are several echogenic linear structures in the scrotal wall soft tissues. There appear to be small intermixed fluid collections. These were not present previously. These are nonspecific but could represent small foreign with granuloma formation. The right testis and epididymis are unremarkable. Ultrasonography of the incision site in the left ju scrotum identifies no nodule or fluid collection. Electronically Signed by Nikhil Aguilar MD 06/10/2019 03:12 P
== END ==
LOC: M RAD 12:46
PROVIDERS: ATTEND Nurse Practitioner Family
DX: N50.819 Testicular pain, unspecified (principal); Z90.79 Acquired absence of other genital organ(s)

== ENCOUNTER 2019-07-09 22:15 | Emergency (ER) | payer OTHER ==
[~2019-07-09] VITALS: Ht 180.3 cm; Wt 95.5 kg
[~2019-07-09 22:15] MED LIST changes: -SERT-155; +SERT50TA29
[2019-07-09 22:16] VITALS: BP 177/85
[2019-07-09] MEDS ORDERED: TRAZ-163 (22:23)
[2019-07-09] MEDS ORDERED: TEST200I14 (22:23)
[2019-07-09] MEDS ORDERED: WELLTAB40 (22:23)
[2019-07-09] MEDS ORDERED: NAPR-837 PO (22:44)
[2019-07-09] MEDS ORDERED: NAPROXEN 250 MG TAB PO ONE (22:45)
--- NOTE | 2019-07-10 10:16 | REP ---
RIGHT LOWER LEG, AP AND LATERAL: AP and lateral views of the right lower leg performed. There is no acute fracture or dislocation. There is a small exostosis of the proximal tibia medially. No other significant findings are seen. Electronically Signed by Nikhil Nicholas MD 07/10/2019 12:31 P
== END 2019-07-09 22:53 | disposition home or self-care (01) ==
LOC: M ED 22:15
DX: S86.211A Strain of muscle(s) and tendon(s) of anterior muscle group at lower leg level, right leg, initial encounter (principal); X50.9XXA Other and unspecified overexertion or strenuous movements or postures, initial encounter; Y92.39 Other specified sports and athletic area as the place of occurrence of the external cause; Y93.B9 Activity, other involving muscle strengthening exercises; Y99.8 Other external cause status; Z79.899 Other long term (current) drug therapy; Z79.890 Hormone replacement therapy